=== PATIENT | female | born 1955 | race Caucasian/White ===

== ENCOUNTER 2018-02-19 13:16 | Emergency (ER) | payer MEDICAID ==
--- NOTE | 2018-02-19 13:39 | Emergency Department Record ---
History of Present Illness - General Stated complaint: FALL/7FEET LANDED ON HEAD Time Seen by Provider: 02/19/18 13:30 Source: Patient, RN notes reviewed Mode of Arrival: Ambulatory - History of Present Illness Initial comments: Patient fell off a seven foot ladder with a head laceration and she walked into the ED and No LOC and she uses asa once a day. No arm or leg pain and no chest or abdominal pain and hard collar placed immediately. Patient stated she landed on her head with a 3 inch laceration of scalp occcipital area right side. No other injuries MD Complaint: Head injury, Fall -: Minutes(s) Location: Occipital Loss of Consciousness: No Previous Trauma to this Area: No Place: Work - Related Data Allergies/Adverse reactions: Allergies Allergy/AdvReac Type Severity Reaction Status Date / Time codeine Allergy itching Unverified 07/31/17 14:59 Review of Systems Reviewed: No additional complaints except as noted below Constitutional: Reports: As per HPI. Denies: Chills, Fever, Malaise, Night sweats, Weakness, Weight change Eyes: Reports: As per HPI. Denies: Eye discharge, Eye pain, Photophobia, Vision change ENT: Reports: As per HPI. Denies: Congestion, Dental pain, Ear pain, Epistaxis , Hearing loss, Throat pain Respiratory: Reports: As per HPI. Denies: Cough, Dyspnea, Hemoptysis, Stridor, Wheezes Cardiovascular: Reports: As per HPI. Denies: Arrhythmia, Chest pain, Dyspnea on exertion, Edema, Murmurs, Orthopnea, Palpitations, Paroxysmal nocturnal dyspnea, Rheumatic Fever, Syncope Endocrine: Reports: As per HPI. Denies: Fatigue, Heat or cold intolerance, Polydipsia, Polyuria Gastrointestinal: Reports: As per HPI. Denies: Abdominal pain, Constipation, Diarrhea, Hematemesis, Hematochezia, Melena, Nausea, Vomiting Genitourinary: Reports: As per HPI. Denies: Abnormal menses, Discharge, Dyspareunia, Dysuria, Frequency, Hematuria, Incontinence, Retention, Urgency Musculoskeletal: Reports: As per HPI. Denies: Arthralgia, Back pain, Gout, Joint swelling, Myalgia, Neck pain Skin: Reports: As per HPI. Denies: Bruising, Change in color, Change in hair/ nails, Lesions, Pruritus, Rash Neurological: Reports: As per HPI, Headache. Denies: Abnormal gait, Confusion, Numbness, Paresthesias, Seizure, Tingling, Tremors, Vertigo, Weakness Psychiatric: Reports: As per HPI. Denies: Anxiety, Auditory hallucinations, Depression, Homicidal thoughts, Suicidal thoughts, Visual hallucinations Hematological/Lymphatic: Reports: As per HPI. Denies: Anemia, Blood Clots, Easy bleeding, Easy bruising, Swollen glands Physical Exam - General General Appearance: Alert, Oriented x3, Cooperative, Mild distress - Head Head exam: Other (laceration back of head) - Eye Eye exam: Normal appearance, PERRL Pupils: Normal accommodation - ENT ENT exam: Normal exam, Mucous membranes moist, Normal external ear exam, Normal orophraynx, TM's normal bilaterally Ear exam: Normal external inspection. negative: External canal tenderness Nasal Exam: Normal inspection. negative: Discharge, Sinus tenderness Mouth exam: Normal external inspection, Tongue normal Teeth exam: Normal inspection. negative: Dental caries Throat exam: Normal inspection. negative: Tonsillar erythema, Tonsillar exudate - Neck Neck exam: Normal inspection, Full ROM, Tenderness - Respiratory Respiratory exam: Normal lung sounds bilaterally. negative: Respiratory distress - Cardiovascular Cardiovascular Exam: Regular rate, Normal rhythm, Normal heart sounds - GI/Abdominal GI/Abdominal exam: Soft, Normal bowel sounds. negative: Tenderness - Rectal Rectal exam: Deferred - exam: Deferred - Extremities Extremities exam: Normal inspection, Full ROM, Normal capillary refill. negative: Tenderness - Back Back exam: Reports: Normal inspection, Full ROM. Denies: Muscle spasm, Rash noted, Tenderness - Neurological Neurological exam: Alert, Normal gait, Oriented X3, Reflexes normal - Psychiatric Psychiatric exam: Normal affect, Normal mood - Skin Skin exam: Dry, Intact, Normal color, Warm Course - Reevaluation(s) Reevaluation #1: laceration repair, cleaned with shurclens and irrigated and anaesthetized with 1 % lidocaine 10 ml and 8 cm laceration repaired with alda times 7 . 02/19/18 14:20 Medical Decision Making - Data Complexity MDM Data: Labs Ordered and/or Reviewed (urine neg for blood), X-Ray Ordered and/ or Reviewed (CT of head and neck neg for fractures) - Lab Data Result diagrams: 02/19/18 13:20 02/19/18 13:20 Disposition Clinical Impression: Laceration of head Qualifiers: Encounter type: initial encounter Location of open wound of head: scalp Foreign body presence: without foreign body Qualified Code(s): S01.01XA - Laceration without foreign body of scalp, initial encounter Disposition: Home, Self-Care Condition: (1) Good Instructions: Laceration (ED), Head Injury (ED) Additional Instructions: follow up with family Dr in 2-7 days Time of Disposition: 15:17 Quality - Quality Measures Quality Measures: N/A - Blood Pressure Screening Does Patient Have Any of the Following: No Blood Pressure Classification: Pre-Hypertensive BP Reading Systolic Measurement: 133 Diastolic Measurement: 74 Screening for High Blood Pressure: < Pre-Hypertensive BP, F/U Documented > [ G8950] Pre-Hypertensive Follow-up Interventions: Referral to alternative/primary care provider.
[2018-02-19 13:46] LABS: BASO % 0.5 % (0-6); EOS % 1.5 % (0-6); GRAN % 62.7 % (47-80); HEMATOCRIT 43.6 % (35.0-47.0); HEMOGLOBIN 14.3 gm/dl (11.6-16.0); LYMPH % 26.1 % (16-45); MEAN CELL VOLUME 92.4 fl (81-97); MEAN CORPUSCULAR HEMOGLOBIN 30.3 pg (27-33); MEAN CORPUSCULAR HGB CONC 32.8 g/dl (32-36); MEAN PLATELET VOLUME 11.5 fl (7.4-10.4); MONO % 9.2 % (0-9); PLATELET COUNT 346 K/uL (130-400); RED BLOOD COUNT 4.72 M/uL (3.80-5.40); WHITE BLOOD COUNT W/O DIFF 11.2 K/uL (4.2-12.2)
[2018-02-19 13:56] LABS: BLOOD UREA NITROGEN 22 mg/dL (8-23); CREATININE 0.7 mg/dL (0.5-0.9); EST GLOMERULAR FILTRATION RATE > 60 mL/min
[2018-02-19 13:59] LABS: GLUCOSE,RANDOM 108 mg/dL (74-109)
[2018-02-19] MEDS: LIDOCAINE (XYLOCAINE) 1% MPF 10MG/ML 5ML VIAL ONE (14:28)
[2018-02-19] MEDS: Diph,Pert(Acell),Tet Vac 0.5 ML SYR IM ONE (14:34)
[2018-02-19] MEDS: ACETAMINOPHEN 500 MG TABLET PO ONE (15:08)
[2018-02-19 15:13] LABS: URINE APPEARANCE CLOUDY; URINE BILIRUBIN NEGATIVE (NEGATIVE); URINE BLOOD NEGATIVE (NEGATIVE); URINE COLOR ORANGE; URINE GLUCOSE (UA) NEGATIVE (NEGATIVE); URINE KETONE TRACE (NEGATIVE); URINE LEUKOCYTE ESTERASE NEGATIVE (NEGATIVE); URINE NITRITE NEGATIVE (NEGATIVE); URINE PROTEIN TRACE (NEGATIVE); URINE UROBILINOGEN 0.2 E.U./dL (0.20 - 1.00)
== END 2018-02-19 15:25 | disposition home or self-care (01) ==
LOC: ER 13:16
DX: S01.01XA Laceration without foreign body of scalp, initial encounter (principal); W11.XXXA Fall on and from ladder, initial encounter; Y99.0 Civilian activity done for income or pay; I10 Essential (primary) hypertension
CPT/HCPCS: 12004; 70450; 72125; 80048; 81003; 85025; 85730; 90715; 96372; 99284; J3490

== ENCOUNTER 2019-03-01 11:23 | Emergency (ER) | payer MEDICARE, MEDICAID ==
[2019-03-01] MEDS ORDERED: DIPHENHYDRAMINE HCL 50 MG/ML VIAL IM ONE (11:36)
--- NOTE | 2019-03-01 11:53 | Emergency Department Record ---
History of Present Illness - General Chief complaint: Urticaria Stated complaint: RASH Time Seen by Provider: 03/01/19 11:28 Source: Patient Mode of Arrival: Ambulatory Limitations: No limitations - History of Present Illness Initial comments: The patient is here due to an itchy rash for a week. She denies any new medicines, foods, or skin products but thinks her dog may have gotten into poison kole. There is no hx of CP, fever, JHONNY, SOB, or RODRÍGUEZ. MD complaint: Rash Onset/Timin -: Days(s) Location: Generalized Severity: Moderate Severity scale (1-10): 1 Quality: Aching Treatments Prior to Arrival: Benadryl, OTC topical medication - Related Data Home Medications Medication Instructions Recorded Confirmed Last Taken Duloxetine HCl [Cymbalta] 30 mg PO DAILY 03/01/19 03/01/19 1 Day Ago ~02/28/19 Loratadine 10 mg PO DAILY 03/01/19 03/01/19 1 Day Ago ~02/28/19 Multivitamin [Multiple Vitamins] 1 each PO DAILY 03/01/19 03/01/19 1 Day Ago ~02/28/19 Omeprazole 20 mg PO DAILY 03/01/19 03/01/19 1 Day Ago ~02/28/19 Tramadol HCl [Ultram] 50 mg PO QID PRN 03/01/19 03/01/19 1 Day Ago ~02/28/19 Previous Rx's Medication Instructions Recorded Prednisone [Prednisone 20Mg] 40 mg PO DAILY #8 tab 03/01/19 Allergies Allergy/AdvReac Type Severity Reaction Status Date / Time codeine Allergy itching Verified 03/01/19 11:31 Travel Screening - Travel/Exposure Within Last 30 Days Have you traveled within the last 30 days?: No - Travel/Exposure Within Last Year Have you traveled outside the [place] in the last year?: No - Additonal Travel Details Have you been exposed to anyone with a communicable illness?: No - Travel Symptoms Symptom Screening: None Review of Systems Constitutional: Denies: Chills, Fever, Malaise Eyes: Denies: Eye discharge ENT: Denies: Congestion, Throat pain Respiratory: Denies: Cough, Dyspnea Past Medical History - SOCIAL HISTORY Smoking Status: Light tobacco smoker (<10/day) Alcohol Use: Occasional Drug Use: None - RESPIRATORY Hx Respiratory Disorders: Yes Hx Asthma: Yes - CARDIOVASCULAR Hx Cardio Disorders: Yes Hx Hypertension: Yes - NEURO Hx Neuro Disorders: No - GI Hx GI Disorders: No - Hx Genitourinary Disorders: No - ENDOCRINE Hx Endocrine Disorders: Yes Hx Diabetes: Yes (diet controlled) Hx Thyroid Disease: Yes - MUSCULOSKELETAL Hx Musculoskeletal Disorders: Yes Hx Arthritis: Yes - PSYCH Hx Psych Problems: Yes Hx Depression: Yes - HEMATOLOGY/ONCOLOGY Hx Hematology/Oncology Disorders: No Family Medical History Any Significant Family History?: Yes Physical Exam - General General Appearance: Alert, Oriented x3, Cooperative, No acute distress - Head Head exam: Atraumatic, Normocephalic - Eye Eye exam: Normal appearance, PERRL - ENT Throat exam: Normal inspection. negative: Tonsillar erythema, Tonsillar exudate - Neck Neck exam: Normal inspection, Full ROM. negative: Tenderness - Respiratory Respiratory exam: Normal lung sounds bilaterally. negative: Respiratory distress - Cardiovascular Cardiovascular Exam: Regular rate, Normal rhythm, Normal heart sounds - GI/Abdominal GI/Abdominal exam: Soft, Normal bowel sounds. negative: Tenderness - Extremities Extremities exam: Normal inspection, Full ROM, Normal capillary refill. negative: Tenderness - Neurological Neurological exam: Alert. negative: Motor sensory deficit - Skin Skin exam: Erythema, Urticaria (There is a diffuse urticarial rash to the trunk and extremities which spares the palms. There are scattered excoriations where she has been scratching.) Course Vital Signs 03/01/19 11:24 Temperature 98.0 F Pulse Rate 83 Respiratory 18 Rate Blood Pressure 146/81 Pulse Ox 100 - Reevaluation(s) Reevaluation #1: The patient is doing very well at this time and the itching is much better. The patient does not take any meds for her diet controlled diabetes so I do feel due to the extent of her rash it will be safe to use a short course of oral steroids on the patient. She is to drink plenty of fluids and stay away from sugar and she will need to have her blood sugar rechecked in 2-3 days. 03/01/19 12:30 Medical Decision Making - Data Complexity MDM Data: Labs Ordered and/or Reviewed - Lab Data Result diagrams: 03/01/19 11:50 03/01/19 11:50 Disposition Disposition: Discharge Clinical Impression: Urticaria Disposition: Home, Self-Care Condition: (2) Stable Instructions: Urticaria (ED) Additional Instructions: Please continue your regular medicines and take Benadryl 50 mg 4 times a day for 4 days along with the oral steroids. Please drink plenty of water and stay away from all sugars. Please see your doctor in 2-3 days to recheck your blood sugar. Prescriptions: Prednisone [Prednisone 20Mg] 40 mg PO DAILY #8 tab Forms: Patient Portal Access Time of Disposition: 12:34 Quality - Quality Measures Quality Measures: N/A - Blood Pressure Screening View Details: Yes Does Patient Have Any of the Following: No Blood Pressure Classification: Pre-Hypertensive BP Reading Systolic Measurement: 146 Diastolic Measurement: 81 Screening for High Blood Pressure: < Pre-Hypertensive BP, F/U Documented > [G8950] Pre-Hypertensive Follow-up Interventions: Referral to alternative/primary care provider.
[2019-03-01 12:11] LABS: ABSOLUTE NEUTROPHIL COUNT 6.38; BASO % 0.3 % (0-6); GRAN % 68.9 % (47-80); HEMATOCRIT 45.1 % (35.0-47.0); HEMOGLOBIN 14.7 gm/dl (11.6-16.0); LYMPH % 20.5 % (16-45); MEAN CELL VOLUME 90.9 fl (81-97); MEAN CORPUSCULAR HEMOGLOBIN 29.6 pg (27-33); MEAN CORPUSCULAR HGB CONC 32.6 g/dl (32-36); MEAN PLATELET VOLUME 11.9 fl (7.4-10.4); MONO % 8.3 % (0-9); PLATELET COUNT 274 K/uL (130-400); RED BLOOD COUNT 4.96 M/uL (3.80-5.40); RED CELL DISTRIBUTION WIDTH 13.7 % (11.5-14.5); WHITE BLOOD COUNT W/O DIFF 9.3 K/uL (4.2-12.2)
[2019-03-01 12:20] LABS: BLOOD UREA NITROGEN 17 mg/dL (8-23); CREATININE 0.5 mg/dL (0.5-0.9); EST GLOMERULAR FILTRATION RATE > 60 mL/min
[2019-03-01 12:23] LABS: GLUCOSE,RANDOM 158 mg/dL (74-109)
== END 2019-03-01 12:39 | disposition home or self-care (01) ==
LOC: ER 11:23
DX: L50.9 Urticaria, unspecified (principal); R21 Rash and other nonspecific skin eruption; I10 Essential (primary) hypertension; F17.210 Nicotine dependence, cigarettes, uncomplicated
CPT/HCPCS: 80048; 85025; 96372; 99284; J1200